=== PATIENT | male | born 1975 | race Caucasian/White ===

== ENCOUNTER 2016-06-24 10:36 | Emergency (ER) | payer OTHER ==
[~2016-06-24] VITALS: Ht 177.8 cm; Wt 100.7 kg
[2016-06-24 11:15] VITALS: BP 172/91
== END 2016-06-24 13:32 | disposition home or self-care (01) ==
LOC: ED 10:36
DX: B02.9 Zoster without complications (principal); I10 Essential (primary) hypertension

== ENCOUNTER 2018-04-28 04:53 | Emergency (ER) | payer OTHER | END 2018-04-28 06:04 | disposition home or self-care (01) | LOC: ED 04:53 ==